=== PATIENT | male | born 1965 | race Caucasian/White ===

== ENCOUNTER 2019-01-02 08:14 | Inpatient (IN) | payer MEDICAID | END 2019-01-04 09:50 | disposition home or self-care (01) | LOC: PAS IN 08:14 → ORTHO 4S 16:15 | DX: M19.90 Unspecified osteoarthritis, unspecified site (principal) ==

== ENCOUNTER 2021-05-19 15:30 | Emergency (ER) | payer MEDICAID ==
[~2021-05-19] VITALS: Ht 175.3 cm; Wt 106.8 kg
[~2021-05-19 15:30] MED LIST: ASPI-611 PO; DICL-194 PO; NAPR220C15 PO
[2021-05-19] MEDS ORDERED: bacitracin 15gm ointment TP ONE (15:45)
[2021-05-19] MEDS ORDERED: TETanus/Pertussis (Acell)/Diphther VAC/PF (Tdap-Adult) 0.5ml syringe IMVAC ONE (15:45)
[2021-05-19] MEDS ORDERED: silver sulfadiazine cream 400gm jar TP SCH (16:05)
[2021-05-19] MEDS ORDERED: ondansetron 4mg rapidly disintigrating tab PO ONE (16:05)
[2021-05-19] MEDS ORDERED: silver sulfadiazine cream 400gm jar TP ONE (16:10)
[2021-05-19] MEDS ORDERED: silver sulfadiazine cream 50gm TP ONE (16:10)
[2021-05-19] MEDS: morphine 4 MG/ML inj SYRINge IM ONE ×2 (16:19→16:55)
[2021-05-19] MEDS ORDERED: IBUP-1984 PO (16:25)
[2021-05-19] MEDS ORDERED: CEPH250T PO (16:25)
[2021-05-19] MEDS ORDERED: ketorolac tromethamine 15mg/ml inj. IM ONE (16:25)
[2021-05-19] MEDS ORDERED: HYDR-3965 PO (16:42)
[2021-05-19] MEDS ORDERED: ONDA4TAB6 PO (16:42)
[2021-05-19 17:38] VITALS: BP 173/103
== END 2021-05-19 17:43 | disposition home or self-care (01) ==
LOC: ER 15:30
DX: T25.111A Burn of first degree of right ankle, initial encounter (principal); T31.0 Burns involving less than 10% of body surface; Z20.3 Contact with and (suspected) exposure to rabies; Z91.011 Allergy to milk products; Z91.018 Allergy to other foods; Z79.82 Long term (current) use of aspirin; Z79.899 Other long term (current) drug therapy; Z79.2 Long term (current) use of antibiotics; X58.XXXA Exposure to other specified factors, initial encounter; Y93.89 Activity, other specified; Y92.89 Other specified places as the place of occurrence of the external cause; Y99.8 Other external cause status
CPT/HCPCS: 16020; 90471; 90715; 96372; 99284; J1885; J2270

== ENCOUNTER 2021-08-02 14:50 | Outpatient (CLI) | payer MEDICARE, MEDICAID ==
[~2021-08-02] VITALS: Ht 175.3 cm; Wt 108.9 kg
[~2021-08-02 14:50] MED LIST changes: +ONDA4TAB6 PO
[2021-08-02 15:52] LABS: BASOPHILS # (AUTO) 0.1 X10'3 (0-0.2); EOSINOPHILS # (AUTO) 0.2 X10'3 (0-0.9); EOSINOPHILS % (AUTO) 3.3 % (0-6); LYMPHOCYTES # (AUTO) 1.9 X10'3 (1.1-4.8); LYMPHOCYTES % (AUTO) 28.5 % (21-51); MEAN CORPUSCULAR HEMOGLOBIN 30.1 PG (27.0-31.0); MEAN CORPUSCULAR HGB CONC 34.1 g/dL (33.0-36.5); MEAN CORPUSCULAR VOLUME 88.2 FL (78-98); MEAN PLATELET VOLUME 7.9 FL (7.4-10.4); MONOCYTES # (AUTO) 0.7 X10'3 (0-0.9); MONOCYTES % (AUTO) 10.3 % (2-12); NEUTROPHILS # (AUTO) 3.8 X10'3 (1.8-7.7); NEUTROPHILS % (AUTO) 56.9 % (42-75); PRE OP HEMATOCRIT 43.8 % (42.0-52.0); PRE OP HEMOGLOBIN 14.9 g/dL (14.0-17.9); PRE OP PLATELET COUNT 259 X10'3 (140-440); RED BLOOD COUNT 4.96 X10'6 (4.70-6.10); RED CELL DISTRIBUTION WIDTH 13.6 % (11.5-14.5)
[2021-08-02 16:11] LABS: ALBUMIN 3.9 G/DL (3.4-5.0); ALBUMIN/GLOBULIN RATIO 1.1 (1.1-1.5); ALKALINE PHOSPHATASE 73 IU/L (46-116); BLOOD UREA NITROGEN 15 MG/DL (7-18); BUN/CREATININE RATIO 16.5 (5.4-32.0); CALCIUM 8.7 MG/DL (8.5-10.1); CHLORIDE 103 MMOL/L (99-107); CREATININE 0.91 MG/DL (0.60-1.10); PRE OP ALT 33 U/L (30-65); PRE OP ANION GAP 10 (8-16); PRE OP AST 20 U/L (10-37); PRE OP BILIRUB, TOTAL 0.8 MG/DL (0.0-1.0); PRE OP GLUCOSE 85 MG/DL (70-104); PRE OP POTASSIUM 3.7 MMOL/L (3.4-5.1); PRE OP SODIUM 139 MMOL/L (135-145); TOTAL CARBON DIOXIDE 26.4 MMOL/L (24-32); TOTAL PROTEIN 7.5 G/DL (6.4-8.2); eGFR 86 ML/MIN
[2021-08-11] MEDS ORDERED: ringers solution, lacted 1,000 ML IV SCH (05:00)
[2021-08-11] MEDS ORDERED: famotidine 20mg tablet PO ONE (05:30)
[2021-08-11] MEDS ORDERED: vancomycin 1,500 MG in NS 300ml IV soln IV ONE (05:30)
[2021-08-11] MEDS ORDERED: cefazolin/dext.iso 2gm/100ml IV ONE (05:30)
== END 2021-08-02 23:59 | disposition home or self-care (01) ==
LOC: PRE-OP 14:50 → EDSTATUS 08-11 08:30 → PRE-OP 08-11 12:42
PROVIDERS: ATTEND Orthopaedic Surgery
DX: Z01.812 Encounter for preprocedural laboratory examination (principal); Z20.822 Contact with and (suspected) exposure to COVID-19
CPT/HCPCS: 36415; 80053; 85025; 87081; 93005; U0003; U0005